=== PATIENT | female | born 1940 | race Two or more races ===

== ENCOUNTER 2018-12-25 15:58 | Outpatient (CLI) | payer OTHER ==
[~2018-12-25 15:58] MED LIST: ASA81 MG; LEVAQUIN500 MG PO
== END 2018-12-25 16:48 | disposition home or self-care (01) ==
LOC: LAB 15:58
DX: I10 Essential (primary) hypertension (principal); M54.5 Low back pain; M54.14 Radiculopathy, thoracic region; E78.89 Other lipoprotein metabolism disorders; E46 Unspecified protein-calorie malnutrition; F39 Unspecified mood [affective] disorder; M81.0 Age-related osteoporosis without current pathological fracture; Z13.820 Encounter for screening for osteoporosis; M15.8 Other polyosteoarthritis

== ENCOUNTER 2018-12-31 10:35 | Outpatient (CLI) | payer OTHER | END 2018-12-31 10:59 | disposition home or self-care (01) | LOC: NUCLEAR 10:35 | DX: M81.0 Age-related osteoporosis without current pathological fracture (principal); M54.5 Low back pain; M54.14 Radiculopathy, thoracic region; M15.9 Polyosteoarthritis, unspecified ==

== ENCOUNTER → 2019-01-01 | Outpatient (CLI) | payer OTHER | END | disposition home or self-care (01) | LOC: NUCLEAR 11:22 | DX: I73.9 Peripheral vascular disease, unspecified (principal) ==

== ENCOUNTER 2019-02-05 15:18 | Outpatient (CLI) | payer OTHER | END 2019-02-05 15:58 | disposition home or self-care (01) | LOC: RAD 501 15:18 | DX: M25.551 Pain in right hip (principal); M25.552 Pain in left hip; M25.562 Pain in left knee; M25.561 Pain in right knee ==